=== PATIENT | female | born 1990 | race African-American/Black ===

== ENCOUNTER 2017-05-03 06:50 | Emergency (ER) | payer BC ==
[~2017-05-03] VITALS: Ht 162.6 cm; Wt 112.0 kg
[~2017-05-03 06:50] MED LIST: AMOX875 PO; ANTISOL30 LEFT EAR; IBUP600T26 PO; PHEN15CA PO
[2017-05-03 06:56] VITALS: BP 135/77; PULSE 95; RESP 15; TEMP 99; O2SAT 99
--- NOTE | 2017-05-03 08:42 | PD ---
HPI . sore throat x 2 days Chief Complaint: Cold / Flu Symptoms Time Seen by Provider: 08:42 Travel History International Travel<30 days: No Contact w/Intl Traveler<30days: No Traveled to known affect area: No History of Present Illness HPI 27-year-old female here with complaints of sore throat for 2 days. Patient says her sore throat just popped up out of the blue. She denies any other cold or flulike symptoms. She reports difficulty swallowing, but denies any issues with breathing. PFSH Past Medical History Medical History: Denies Significant Hx Hx Anticoagulant Therapy: No Cardiovascular Problems: No Chemotherapy: No Cerebrovascular Accident: No Diabetes: No Diminished Hearing: No Respiratory: No Immunizations Current: Yes Influenza Vaccination: No (REFUSED NEVER HAD IT ) ?: Not LMP: 04/17/17 Past Surgical History Surgical History: No Previous Surgery Hysterectomy: No Social History Alcohol Use: No Tobacco Use: No Substance Use: No Allergies-Medications (Allergen,Severity, Reaction): Coded Allergies: No Known Allergies (Unverified , 05/03/17) Reported Meds & Prescriptions Reported Meds & Active Scripts Active Amoxicillin 500 Mg Cap 500 Mg PO BID 10 Days Review of Systems General / Constitutional: No: Fever, Chills Eyes: No: Visual changes HENT: Positive: Sore Throat, No: Headaches, Congestion Cardiovascular: No: Chest Pain or Discomfort Respiratory: No: Cough, Shortness of Breath Gastrointestinal: No: Abdominal Pain Genitourinary: No: Dysuria Musculoskeletal: No: Pain Skin: No Rash Neurologic: No: Weakness Psychiatric: No: Depression Endocrine: No: Polydipsia Hematologic/Lymphatic: No: Easy Bruising Physical Exam Narrative GENERAL: AAO x 3, no acute distress, Well-nourished, well-developed patient. SKIN: Warm and dry. No visible rashes or bruising. HEAD: Normocephalic and atraumatic. EYES: No scleral icterus. No injection or drainage. EOM intact, PERRLA ENT: No nasal drainage noted. Mucous membranes pink. Airway patent. Moderate posterior pharynx erythema with exudates, uvula is midline NECK: Supple, trachea midline. No JVD. Change lymphadenopathy present CARDIOVASCULAR: Regular rate and rhythm without murmurs, gallops, or rubs. RESPIRATORY: Breath sounds equal bilaterally. No accessory muscle use. No rhonchi or rales. GASTROINTESTINAL: Abdomen soft, non-tender, nondistended. EXTREMITIES: No cyanosis or edema. BACK: No obvious deformity. NEURO: CN II-12 intact, PSYCH: AAO x 3, normal affect. Data Data Last Documented VS Vital Signs Date Time Temp Pulse Resp B/P Pulse Ox O2 Delivery O2 Flow Rate FiO2 05/03/17 07:12 21 Room Air 05/03/17 06:56 99.0 95 135/77 99 MDM Medical Decision Making Medical Screen Exam Complete: Yes Emergency Medical Condition: Yes Medical Record Reviewed: Yes Differential Diagnosis Acute pharyngitis, sinusitis, less likely mononucleosis Narrative Course 27-year-old female here with complaints of sore throat. On examination she has an exudative pharyngitis. I will go ahead and treat with amoxicillin. I recommended salt water gargles. I advised her if she develops any worsening symptoms, shortness breath or drooling, go to the nearest ER. Patient verbalized understanding of instructions, questions were answered, and thanked me for their care. I advised them if their condition worsens, please return to the nearest emergency room for further care. Diagnosis Primary Impression: Acute pharyngitis Qualified Code: J02.9 - Acute pharyngitis, unspecified etiology Patient Instructions: General Instructions Additional Instructions: Take medications as prescribed. Try salt water gargles. Do not share utensils, toothbrush, etc. If you develop difficulty breathing, please go to the nearest emergency room. Please return to emergency department if your symptoms return or worsen. Follow up with your primary care provider. Take medications as prescribed. Med/Other Pt SpecificInfo: Prescription(s) given Scripts Amoxicillin 500 Mg [id number] Mg PO BID 10 Days Ref 0 Prov:Crystal Dalton MD 05/03/17 Disposition: 01 DISCHARGE HOME Condition: Stable Alice Robert May 03, 2017 08:42
[2017-05-03] MEDS ORDERED: AMOX500C PO (08:47)
== END 2017-05-03 08:51 | disposition home or self-care (01) ==
LOC: NEPD 06:50
DX: J02.9 Acute pharyngitis, unspecified (principal)
CPT/HCPCS: 99283